=== PATIENT | female | born 2000 | race Caucasian/White ===

== ENCOUNTER 2019-06-20 06:47 | Emergency (ER) | payer SELFPAY ==
[2019-06-20] MEDS ORDERED: ED cefTRIAXone 1 GM/50 ML 1 GM/50 ML PREMIX.SET IVPB ONE (07:03)
[2019-06-20] MEDS ORDERED: Ondansetron INJ* 2 MG/ML VIAL IV ONE (07:05)
--- NOTE | 2019-06-20 07:09 | ED ---
GI/ HPI - HPI Summary HPI Summary: The pt is a 19 yr old female presenting to [facility] c/o vomiting and diarrhea beginning 7 hours [employer] with diffuse abd pain. She woke up at 0000 and did not feel well and has been vomiting/having diarrhea ever since. After arriving at the ED she notes that she began dry heaving and experiencing some abd pain described as cramping and rates her current overall pain severity a 5/10. The pt is accompanied by a friend who works in a lab that studies cryptosporidium, and she may have had secondary exposure to it. She also reports blood w/ stool and hematemesis but denies any fever. - History of Current Complaint Chief Complaint: EDNauseaVomitDiarrh Stated Complaint: PUKING PER PT Hx Obtained From: Patient Onset/Duration: Started Hours Ago - at 0000 today, Still Present Timing: Intermittent, Lasting Hours Severity: Moderate Current Severity: Moderate Pain Intensity: 5 Location of Pain: Diffuse Pain Characteristics: Cramping Associated Signs and Symptoms: Positive: Hematemesis, Nausea, Vomiting, Blood w/ Stool, Diarrhea, Abdominal Pain - diffuse. Negative: Fever Aggravating Factor(s): Nothing Alleviating Factor(s): Nothing - Allergy/Home Medications Allergies/Adverse Reactions: Allergies Allergy/AdvReac Type Severity Reaction Status Date / Time No Known Allergies Allergy Verified 06/20/19 06:50 PMH/Surg Hx/FS Hx/Imm Hx Respiratory History: Denies: Hx Asthma Sensory History: Denies: Hx Legally Blind, Hx Deafness Opthamlomology History: Denies: Hx Legally Blind EENT History: Denies: Hx Deafness - Surgical History Surgical History: None Surgery Procedure, Year, and Place: None Infectious Disease History: Yes Infectious Disease History: Denies: Traveled Outside the [place] in Last 30 Days - Family History Known Family History: Negative: Hypertension, Diabetes - Social History Alcohol Use: Occasionally Hx Substance Use: No Hx Tobacco Use: No Smoking Status (MU): Never Smoked Tobacco Review of Systems Negative: Fever Positive: Abdominal Pain - diffuse, Vomiting, Diarrhea, Nausea, Other - Positive - blood w/stool, hematemesis All Other Systems Reviewed And Are Negative: Yes Physical Exam - Summary Physical Exam Summary: Appearance: Mildly ill-appearing young female, Well-nourished, lying in bed comfortably Skin: Warm, dry, no obvious rash Eyes: sclera anicteric, no conjunctival pallor ENT: mucous membranes moist, pharynx appears normal Neck: Supple, nontender Respiratory: Clear to auscultation, no signs of respiratory distress Cardiovascular: Normal S1, S2. No murmurs. Normal distal pulses in tibial and radial bilaterally. Abdomen: Soft, mild diffuse tenderness, normal active bowel sounds present Musculoskeletal: Normal, Strength/ROM Intact Neurological: A&Ox3, awake and alert, mentation is normal, speech is fluent and appropriate Psychiatric: affect is normal, does not appear anxious or depressed Triage Information Reviewed: Yes Vital Signs On Initial Exam: Initial Vitals Temp Pulse Resp BP Pulse Ox 97.7 F 109 18 140/115 100 06/20/19 06:48 06/20/19 06:48 06/20/19 06:48 06/20/19 06:48 06/20/19 06:48 Vital Signs Reviewed: Yes Diagnostics - Vital Signs Vital Signs Temp Pulse Resp BP Pulse Ox 06/20/19 06:48 97.7 F 109 18 140/115 100 - Laboratory Result Diagrams: 06/20/19 10:50 06/20/19 07:11 Lab Statement: Any lab studies that have been ordered have been reviewed, and results considered in the medical decision making process. Re-Evaluation - Re-Evaluation First Eval Re-Evaluation Time: 07:10 Comment: Crypto disease was discussed with pt. Second Eval Re-Evaluation Time: 11:50 Comment: I discussed repeat blood work and discharge home with the patient. GIGU Course/Dx - Course Course Of Treatment: The pt is a 19 yr old female [facility] [place] vomiting and diarrhea beginning 7 hours [employer] with diffuse abd pain. She woke up at 0000 and did not feel well and has been vomiting/having diarrhea ever since. After arriving at the ED she notes that she began dry heaving and experiencing some abd pain described as cramping and rates her current overall pain severity a 5/10. The pt is accompanied by a friend who works in a lab that studies cryptosporidium, and she may have had secondary exposure to it. She also reports blood w/ stool and hematemesis but denies any fever. The physical exam was only notable for mild diffuse tenderness of the abd. Test results normal except for WBC @ 21.9, Absolute neuts @ 19.3, Absolute lymphs @ 0.7, and absolute monos @ 1.9, CO2 @ 21, Anion Gap @ 16, Glucose @ 164, Calcium @ 11.2, Lactic Acid @ 2.5, Calcium @ 11.2, Albumin @ 5.5 and 1+ Urine ketones. Repeat blood work reveals WBCs @ 15.6, Hgb @ 11.6, Hct @ 34, Absolute neuts @ 14.2, Absolute lymphs @ 0.7, and Lactic acid @ 1.4. In the ED course the pt was given 2000 mls fluids IV twice, 8 mg Zofran IV, and 50 mls Ceftrixone IVPB. Fecal lactoferrin, C. diff, and Giardia/Cryptosporidium cultures ordered and pending at pts discharge. The pt was diagnosed with gastroenteritis, discharged home, and instructed to follow up with PCP within 3 days. - Diagnoses Provider Diagnoses: Gastroenteritis Discharge - Sign-Out/Discharge Documenting (check all that apply): Patient Departure - discharge Patient Received Moderate/Deep Sedation with Procedure: No - Discharge Plan Condition: Good Disposition: HOME Prescriptions: Ondansetron ODT TAB* [Zofran 4 MG Odt TAB*] 8 mg PO Q6H PRN #12 tab.odt PRN Reason: Nausea Patient Education Materials: Gastroenteritis (ED) Referrals: [facility] [Outside] - 3 Days Additional Instructions: The repeat blood work looks good. I would recommend a clear liquid diet through today, you can advance to a normal diet tomorrow if you are feeling better. - Billing Disposition and Condition Condition: GOOD Disposition: Home - Attestation Statements Document Initiated by Beto: Yes Documenting Scribe: Aristides Lantigua Provider For Whom Beto is Documenting (Include Credential): Gordo Webster MD Scribe Attestation: IAristides, scribed for Gordo Webster MD on 06/22/19 at 0431. Scribe Documentation Reviewed: Yes Provider Attestation: The documentation as recorded by the Aristides pinon accurately reflects the service I personally performed and the decisions made by me, Gordo Webster MD Status of Scribe Document: Viewed
[2019-06-20] MEDS: NS 0.9% 1000 ML** 2,000 ML IV ONE ×3 (07:13→09:44)
[2019-06-20 07:26] LABS: Hematocrit 42 % (35-47); Hemoglobin 14.4 g/dL (12.0-16.0); Mean Corpuscular HGB Conc 35 g/dL (31-36); Mean Corpuscular Hemoglobin 30 pg (27-31); Mean Corpuscular Volume 87 fL (80-97); Mean Platelet Volume 7.6 fL (7.4-10.4); Platelet Count 337 10^3/uL (150-450); Red Blood Count 4.78 10^6 /uL (3.70-4.87); Red Cell Distribution Width 14 % (10-15); White Blood Count 21.9 10^3/uL (3.5-10.8)
[2019-06-20 07:38] LABS: ALT 22 U/L (7-52); AST 26 U/L (13-39); Albumin 5.5 g/dL (3.2-5.2); Albumin/Globulin Ratio 1.8 (1-3); Alkaline Phosphatase 57 U/L (34-104); Anion Gap 16 mmol/L (2-11); BUN/Creatinine Ratio 17.7 (8-20); Blood Urea Nitrogen 14 mg/dL (6-24); CO2 Carbon Dioxide 21 mmol/L (22-32); Calcium 11.2 mg/dL (8.6-10.3); Chloride 101 mmol/L (101-111); EGFR African American 111.2 (>60); EGFR Non-African American 91.9 (>60); Glucose 164 mg/dL (70-100); Potassium 3.7 mmol/L (3.5-5.0); Sodium 138 mmol/L (135-145); Total Protein 8.5 g/dL (6.4-8.9)
[2019-06-20 07:43] LABS: HCG Pregnancy < 0.60 mIU/mL
[2019-06-20] MEDS ORDERED: cefTRIAXone(*) 1 GM in NS 0.9% 50 ML* 50 ML IVPB ONE (08:00)
[2019-06-20 08:36] LABS: ABS Basophils 0.1 10^3/ul (0-0.2); ABS Lymphocytes 0.7 10^3/ul (1.0-4.8); ABS Monocytes 1.9 10^3/ul (0-0.8); ABS Neutrophils 19.3 10^3/ul (1.5-7.7); Eosinophil % 0.1 %
[2019-06-20 10:00] LABS: Urine Appearance Cloudy; Urine Bilirubin Negative (Negative); Urine Blood Negative (Negative); Urine Color Yellow; Urine Glucose Negative (Negative); Urine Ketones 1+ (Negative); Urine Nitrite Negative (Negative); Urine Protein Negative (Negative); Urine Specific Gravity 1.011 (1.010-1.030); Urine Urobilinogen Negative (Negative)
[2019-06-20 11:12] LABS: ABS Lymphocytes 0.7 10^3/ul (1.0-4.8); ABS Monocytes 0.8 10^3/ul (0-0.8); ABS Neutrophils 14.2 10^3/ul (1.5-7.7); Hematocrit 34 % (35-47); Hemoglobin 11.6 g/dL (12.0-16.0); Lymphocyte % 4.4 %; Mean Corpuscular HGB Conc 35 g/dL (31-36); Mean Corpuscular Hemoglobin 30 pg (27-31); Mean Corpuscular Volume 88 fL (80-97); Mean Platelet Volume 7.4 fL (7.4-10.4); Platelet Count 267 10^3/uL (150-450); Red Blood Count 3.82 10^6 /uL (3.70-4.87); Red Cell Distribution Width 14 % (10-15); White Blood Count 15.6 10^3/uL (3.5-10.8)
[2019-06-20 12:10] VITALS: BP 104/61
== END 2019-06-20 12:10 | disposition home or self-care (01) ==
LOC: ED 06:47
DX: K52.9 Noninfective gastroenteritis and colitis, unspecified (principal)
CPT/HCPCS: 36415; 80053; 81003; 83605; 83690; 84702; 85025; 96361; 96365; 96375; 99284; J0696; J2405